=== PATIENT | female | born 1935 | race African-American/Black ===

== ENCOUNTER → 2019-12-22 06:36 | Outpatient (REF) | payer MEDICARE, MEDICAID, SELFPAY | LOC: OLS.ACW400 06:36 | PROVIDERS: Referring Provider Family Medicine; Visit Provider Family Medicine | DX: Z11.59 Encounter for screening for other viral diseases (principal) | CPT/HCPCS: 87635; U0003 ==

== ENCOUNTER → 2019-12-26 04:00 | Outpatient (REF) | payer MEDICARE, MEDICAID, SELFPAY ==
[2019-12-26 09:13] LABS: Hematocrit 32.6 % (37-47); Hemoglobin 10.2 g/dL (12.0-15.0); Mean Corp Hgb Conc 31.3 g/dL (32-36); Mean Corpuscular Hgb 26.3 pg (27.0-32.0); Platelet Count 122 K/mm3 (150-450); Red Blood Count 3.88 M/mm3 (4.2-5.4); White Blood Count 4.7 K/mm3 (4.4-11.0)
[2019-12-26 09:21] LABS: Scan Indicated on CBC? Y/N NO
[2019-12-26 09:37] LABS: ALB/GLOB Ratio 0.7 RATIO (0.9-2.4); AST(SGOT) 42 U/L (15-37); Alanine Aminotransfer ALT/SGPT 48 U/L (13-56); Albumin, Serum 2.8 g/dL (3.2-5.0); Alkaline Phosphatase 195 U/L (45-117); Anion Gap 5 (5-15); BUN 12 mg/dL (7-18); BUN/Creat Ratio 14.3 RATIO (10-20); Calcium,Total 9.1 mg/dL (8.5-10.1); Chloride 110 mmol/L (98-107); Creatinine, Serum 0.84 mg/dL (0.55-1.02); EST Glomerular Filtration Rate 68 mL/min (>60); Est Glom Filt Rate - Afr Amer 83 mL/min (>60); Globulin 3.8 g/dL (2.2-4.2); Glucose 85 mg/dL (74-106); Magnesium 1.9 mg/dL (1.6-2.6); Potassium 3.9 mmol/L (3.5-5.1); Protein, Total 6.6 g/dL (6.4-8.2); Sodium Level 141 mmol/L (136-145); Thyroid Stim Hormone (TSH) 1.57 uIU/mL (0.358-3.74)
[2019-12-26 09:54] LABS: Digoxin Level 0.89 ng/mL (0.80-2.00)
[2019-12-26 11:10] LABS: Vitamin D,25 Hydroxy 51.4 ng/mL
== END ==
LOC: OLS.ACW400 04:00
PROVIDERS: Referring Provider Family Medicine; Visit Provider Family Medicine
DX: I63.9 Cerebral infarction, unspecified (principal); I69.851 Hemiplegia and hemiparesis following other cerebrovascular disease affecting right dominant side; I69.320 Aphasia following cerebral infarction; R13.10 Dysphagia, unspecified; E55.9 Vitamin D deficiency, unspecified; Z79.899 Other long term (current) drug therapy
CPT/HCPCS: 36415; 80053; 80162; 82306; 82533; 83735; 84443; 85027

== ENCOUNTER → 2020-02-17 10:38 | Outpatient (REF) | payer MEDICARE, MEDICAID, SELFPAY | LOC: OLS.ACW400 10:38 | PROVIDERS: Visit Provider Family Medicine | DX: Z03.818 Encounter for observation for suspected exposure to other biological agents ruled out (principal) | CPT/HCPCS: 87635; U0003 ==

== ENCOUNTER → 2020-02-23 13:45 | Outpatient (REF) | payer MEDICARE, MEDICAID, SELFPAY | LOC: OLS.ACW400 13:45 | PROVIDERS: Referring Provider Family Medicine; Visit Provider Family Medicine | DX: Z03.818 Encounter for observation for suspected exposure to other biological agents ruled out (principal) | CPT/HCPCS: 87635; U0003 ==

== ENCOUNTER → 2020-03-05 08:00 | Outpatient (REF) | payer MEDICARE, MEDICAID, SELFPAY ==
[2020-03-05 10:04] LABS: ALB/GLOB Ratio 0.5 RATIO (0.9-2.4); AST(SGOT) 113 U/L (15-37); Alanine Aminotransfer ALT/SGPT 89 U/L (13-56); Albumin, Serum 2.7 g/dL (3.2-5.0); Alkaline Phosphatase 1099 U/L (45-117); Anion Gap 7 (5-15); BUN 12 mg/dL (7-18); BUN/Creat Ratio 12.8 RATIO (10-20); Calcium,Total 10.2 mg/dL (8.5-10.1); Chloride 108 mmol/L (98-107); Creatinine, Serum 0.94 mg/dL (0.55-1.02); EST Glomerular Filtration Rate 60 mL/min (>60); Est Glom Filt Rate - Afr Amer 73 mL/min (>60); Globulin 5.2 g/dL (2.2-4.2); Glucose 92 mg/dL (74-106); Potassium 3.8 mmol/L (3.5-5.1); Protein, Total 7.9 g/dL (6.4-8.2); Sodium Level 141 mmol/L (136-145)
[2020-03-05 10:16] LABS: Digoxin Level 0.74 ng/mL (0.80-2.00)
== END ==
LOC: OLS.ACW400 08:00
PROVIDERS: Visit Provider Family Medicine
DX: I63.9 Cerebral infarction, unspecified (principal); I69.851 Hemiplegia and hemiparesis following other cerebrovascular disease affecting right dominant side; I69.320 Aphasia following cerebral infarction; R13.10 Dysphagia, unspecified; Z79.899 Other long term (current) drug therapy
CPT/HCPCS: 36415; 80053; 80162

== ENCOUNTER → 2020-08-02 05:00 | Outpatient (REF) | payer MEDICARE, MEDICAID, SELFPAY ==
[2020-08-02 08:01] LABS: ALB/GLOB Ratio 0.8 RATIO (0.9-2.4); AST(SGOT) 25 U/L (15-37); Alanine Aminotransfer ALT/SGPT 24 U/L (13-56); Alkaline Phosphatase 396 U/L (45-117); Anion Gap 5 (5-15); BUN 14 mg/dL (7-18); BUN/Creat Ratio 19.4 RATIO (10-20); Calcium,Total 9.3 mg/dL (8.5-10.1); Chloride 113 mmol/L (98-107); Creatinine, Serum 0.72 mg/dL (0.55-1.02); EST Glomerular Filtration Rate 81 mL/min (>60); Est Glom Filt Rate - Afr Amer 98 mL/min (>60); Globulin 3.7 g/dL (2.2-4.2); Glucose 81 mg/dL (74-106); Potassium 3.9 mmol/L (3.5-5.1); Protein, Total 6.7 g/dL (6.4-8.2); Sodium Level 143 mmol/L (136-145)
[2020-08-02 08:12] LABS: Digoxin Level 0.09 ng/mL (0.80-2.00)
== END ==
LOC: OLS.ACW400 05:00
PROVIDERS: Visit Provider Family Medicine
DX: I63.9 Cerebral infarction, unspecified (principal); I69.851 Hemiplegia and hemiparesis following other cerebrovascular disease affecting right dominant side; I69.320 Aphasia following cerebral infarction; R13.10 Dysphagia, unspecified; Z79.899 Other long term (current) drug therapy
CPT/HCPCS: 36415; 80053; 80162

== ENCOUNTER → 2020-09-07 05:00 | Outpatient (REF) | payer MEDICARE, MEDICAID, SELFPAY ==
[2020-09-07 09:26] LABS: BNP,B-Type NATRIURETIC PEPTIDE 699.3 pg/mL (0-100)
[2020-09-07 09:29] LABS: Anion Gap 4 (5-15); BUN 16 mg/dL (7-18); BUN/Creat Ratio 20.4 RATIO (10-20); Calcium,Total 9.6 mg/dL (8.5-10.1); Chloride 111 mmol/L (98-107); Creatinine, Serum 0.78 mg/dL (0.55-1.02); EST Glomerular Filtration Rate 74 mL/min (>60); Est Glom Filt Rate - Afr Amer 90 mL/min (>60); Glucose 79 mg/dL (74-106); Potassium 4.1 mmol/L (3.5-5.1); Sodium Level 141 mmol/L (136-145)
== END ==
LOC: OLS.ACW400 05:00
PROVIDERS: Visit Provider Family Medicine
DX: I63.9 Cerebral infarction, unspecified (principal); I69.851 Hemiplegia and hemiparesis following other cerebrovascular disease affecting right dominant side; I69.391 Dysphagia following cerebral infarction; R13.12 Dysphagia, oropharyngeal phase; R60.9 Edema, unspecified
CPT/HCPCS: 36415; 80048; 83880

== ENCOUNTER → 2020-09-10 04:00 | Outpatient (REF) | payer MEDICARE, MEDICAID, SELFPAY ==
[2020-09-10 08:56] LABS: BNP,B-Type NATRIURETIC PEPTIDE 840.2 pg/mL (0-100)
[2020-09-10 09:10] LABS: Anion Gap 7 (5-15); BUN 16 mg/dL (7-18); BUN/Creat Ratio 18.6 RATIO (10-20); Calcium,Total 9.5 mg/dL (8.5-10.1); Chloride 109 mmol/L (98-107); Creatinine, Serum 0.86 mg/dL (0.55-1.02); EST Glomerular Filtration Rate 67 mL/min (>60); Est Glom Filt Rate - Afr Amer 81 mL/min (>60); Glucose 77 mg/dL (74-106); Sodium Level 142 mmol/L (136-145)
== END ==
LOC: OLS.ACW400 04:00
PROVIDERS: Visit Provider Family Medicine
DX: I63.9 Cerebral infarction, unspecified (principal); I69.851 Hemiplegia and hemiparesis following other cerebrovascular disease affecting right dominant side; I69.391 Dysphagia following cerebral infarction; R13.12 Dysphagia, oropharyngeal phase
CPT/HCPCS: 36415; 80048; 83880

== ENCOUNTER → 2020-09-28 05:00 | Outpatient (REF) | payer MEDICARE, MEDICAID, SELFPAY ==
[2020-09-28 08:08] LABS: Anion Gap 4 (5-15); BUN 17 mg/dL (7-18); BUN/Creat Ratio 18.3 RATIO (10-20); Calcium,Total 9.3 mg/dL (8.5-10.1); Chloride 111 mmol/L (98-107); Creatinine, Serum 0.93 mg/dL (0.55-1.02); EST Glomerular Filtration Rate 61 mL/min (>60); Est Glom Filt Rate - Afr Amer 73 mL/min (>60); Glucose 85 mg/dL (74-106); Potassium 3.8 mmol/L (3.5-5.1); Sodium Level 143 mmol/L (136-145)
== END ==
LOC: OLS.ACW400 05:00
PROVIDERS: Visit Provider Family Medicine
DX: I63.9 Cerebral infarction, unspecified (principal); I69.851 Hemiplegia and hemiparesis following other cerebrovascular disease affecting right dominant side; I69.391 Dysphagia following cerebral infarction; R13.12 Dysphagia, oropharyngeal phase
CPT/HCPCS: 36415; 80048

== ENCOUNTER → 2020-10-05 05:00 | Outpatient (REF) | payer MEDICARE, MEDICAID, SELFPAY ==
[2020-10-05 08:19] LABS: Anion Gap 7 (5-15); BUN 20 mg/dL (7-18); BUN/Creat Ratio 17.2 RATIO (10-20); Calcium,Total 9.6 mg/dL (8.5-10.1); Chloride 107 mmol/L (98-107); Creatinine, Serum 1.16 mg/dL (0.55-1.02); EST Glomerular Filtration Rate 47 mL/min (>60); Est Glom Filt Rate - Afr Amer 57 mL/min (>60); Glucose 91 mg/dL (74-106); Potassium 4.2 mmol/L (3.5-5.1); Sodium Level 141 mmol/L (136-145)
== END ==
LOC: OLS.ACW400 05:00
PROVIDERS: Referring Provider Family Medicine; Visit Provider Family Medicine
DX: I63.9 Cerebral infarction, unspecified (principal); I69.851 Hemiplegia and hemiparesis following other cerebrovascular disease affecting right dominant side; I69.391 Dysphagia following cerebral infarction; R13.12 Dysphagia, oropharyngeal phase
CPT/HCPCS: 36415; 80048

== ENCOUNTER → 2020-10-12 05:00 | Outpatient (REF) | payer MEDICARE, MEDICAID, SELFPAY ==
[2020-10-12 09:16] LABS: Anion Gap 4 (5-15); BUN 31 mg/dL (7-18); BUN/Creat Ratio 24.6 RATIO (10-20); Calcium,Total 9.9 mg/dL (8.5-10.1); Chloride 109 mmol/L (98-107); Creatinine, Serum 1.26 mg/dL (0.55-1.02); EST Glomerular Filtration Rate 43 mL/min (>60); Est Glom Filt Rate - Afr Amer 52 mL/min (>60); Glucose 93 mg/dL (74-106); Potassium 3.9 mmol/L (3.5-5.1); Sodium Level 143 mmol/L (136-145)
== END ==
LOC: OLS.ACW400 05:00
PROVIDERS: Visit Provider Family Medicine
DX: I63.9 Cerebral infarction, unspecified (principal); I69.851 Hemiplegia and hemiparesis following other cerebrovascular disease affecting right dominant side; I69.391 Dysphagia following cerebral infarction; R13.12 Dysphagia, oropharyngeal phase
CPT/HCPCS: 36415; 80048

== ENCOUNTER → 2020-10-19 05:00 | Outpatient (REF) | payer MEDICARE, MEDICAID, SELFPAY ==
[2020-10-19 07:55] LABS: Anion Gap 3 (5-15); BUN 25 mg/dL (7-18); BUN/Creat Ratio 25.6 RATIO (10-20); Calcium,Total 9.4 mg/dL (8.5-10.1); Chloride 110 mmol/L (98-107); Creatinine, Serum 0.98 mg/dL (0.55-1.02); EST Glomerular Filtration Rate 57 mL/min (>60); Est Glom Filt Rate - Afr Amer 69 mL/min (>60); Glucose 86 mg/dL (74-106); Potassium 4.3 mmol/L (3.5-5.1); Sodium Level 142 mmol/L (136-145)
== END ==
LOC: OLS.ACW400 05:00
PROVIDERS: Visit Provider Family Medicine
DX: I50.9 Heart failure, unspecified (principal); I63.9 Cerebral infarction, unspecified; I69.851 Hemiplegia and hemiparesis following other cerebrovascular disease affecting right dominant side; I69.391 Dysphagia following cerebral infarction; R13.12 Dysphagia, oropharyngeal phase
CPT/HCPCS: 36415; 80048

== ENCOUNTER → 2020-10-25 05:00 | Outpatient (REF) | payer MEDICARE, MEDICAID, SELFPAY ==
[2020-10-25 09:25] LABS: Anion Gap 2 (5-15); BUN 24 mg/dL (7-18); BUN/Creat Ratio 25.8 RATIO (10-20); Calcium,Total 9.2 mg/dL (8.5-10.1); Chloride 109 mmol/L (98-107); Creatinine, Serum 0.93 mg/dL (0.55-1.02); EST Glomerular Filtration Rate 61 mL/min (>60); Est Glom Filt Rate - Afr Amer 73 mL/min (>60); Glucose 76 mg/dL (74-106); Potassium 4.3 mmol/L (3.5-5.1); Sodium Level 139 mmol/L (136-145)
== END ==
LOC: OLS.ACW400 05:00
PROVIDERS: Referring Provider Family Medicine; Visit Provider Family Medicine
DX: I63.9 Cerebral infarction, unspecified (principal); I69.851 Hemiplegia and hemiparesis following other cerebrovascular disease affecting right dominant side; I69.391 Dysphagia following cerebral infarction; R13.12 Dysphagia, oropharyngeal phase
CPT/HCPCS: 36415; 80048

== ENCOUNTER → 2021-02-01 05:00 | Outpatient (REF) | payer MEDICARE, MEDICAID, SELFPAY ==
[2021-02-01 09:54] LABS: ALB/GLOB Ratio 0.7 RATIO (0.9-2.4); AST(SGOT) 26 U/L (15-37); Alanine Aminotransfer ALT/SGPT 31 U/L (13-56); Alkaline Phosphatase 158 U/L (45-117); Anion Gap 5 (5-15); BUN 17 mg/dL (7-18); BUN/Creat Ratio 20.1 RATIO (10-20); Calcium,Total 9.2 mg/dL (8.5-10.1); Chloride 110 mmol/L (98-107); Creatinine, Serum 0.85 mg/dL (0.55-1.02); EST Glomerular Filtration Rate 68 mL/min (>60); Est Glom Filt Rate - Afr Amer 82 mL/min (>60); Globulin 4.1 g/dL (2.2-4.2); Glucose 79 mg/dL (74-106); Potassium 4.1 mmol/L (3.5-5.1); Protein, Total 7.1 g/dL (6.4-8.2); Sodium Level 141 mmol/L (136-145)
== END ==
LOC: OLS.ACW100 05:00
PROVIDERS: Visit Provider Family Medicine
DX: I63.9 Cerebral infarction, unspecified (principal); I69.851 Hemiplegia and hemiparesis following other cerebrovascular disease affecting right dominant side; I69.391 Dysphagia following cerebral infarction; R13.12 Dysphagia, oropharyngeal phase
CPT/HCPCS: 80053

== ENCOUNTER → 2021-05-14 | Outpatient (REF) | payer MEDICARE, MEDICAID, SELFPAY ==
[2021-05-14 08:49] LABS: Hematocrit 34.4 % (37-47); Mean Corpuscular Hgb 30.8 pg (27.0-32.0); Mean Corpuscular Volume 96.4 fL (81-99); Mean Platelet Vol. 12.4 fl (6.2-12.0); Platelet Count 126 K/mm3 (150-450); RBC Distribution Width CV 14.6 % (11.6-14.6); RBC Distribution Width SD 51.9 fl (35.1-43.9); Red Blood Count 3.57 M/mm3 (4.2-5.4); White Blood Count 4.5 K/mm3 (4.4-11.0)
[2021-05-14 09:06] LABS: Uric Acid 6.7 mg/dL (2.6-6.0)
== END | disposition home or self-care (01) ==
LOC: OLS.ACW400 05:00
PROVIDERS: Visit Provider Family Medicine
DX: I63.9 Cerebral infarction, unspecified (principal); I69.851 Hemiplegia and hemiparesis following other cerebrovascular disease affecting right dominant side; I69.391 Dysphagia following cerebral infarction; R13.12 Dysphagia, oropharyngeal phase
CPT/HCPCS: 36415; 84550; 85027

== ENCOUNTER → 2021-08-02 | Outpatient (REF) | payer MEDICARE, MEDICAID, SELFPAY ==
[2021-08-02 07:55] LABS: ALB/GLOB Ratio 0.7 RATIO (0.9-2.4); AST(SGOT) 17 U/L (15-37); Alanine Aminotransfer ALT/SGPT 13 U/L (13-56); Albumin, Serum 3.2 g/dL (3.2-5.0); Alkaline Phosphatase 135 U/L (45-117); Anion Gap 3 (5-15); BUN 31 mg/dL (7-18); BUN/Creat Ratio 28.2 RATIO (10-20); Chloride 112 mmol/L (98-107); EST Glomerular Filtration Rate 50 mL/min (>60); Est Glom Filt Rate - Afr Amer 60 mL/min (>60); Globulin 4.9 g/dL (2.2-4.2); Glucose 111 mg/dL (74-106); Potassium 4.2 mmol/L (3.5-5.1); Protein, Total 8.1 g/dL (6.4-8.2); Sodium Level 141 mmol/L (136-145)
== END | disposition home or self-care (01) ==
LOC: OLS.ACW400 05:00
PROVIDERS: Visit Provider Family Medicine
DX: I63.9 Cerebral infarction, unspecified (principal); I69.851 Hemiplegia and hemiparesis following other cerebrovascular disease affecting right dominant side; I69.391 Dysphagia following cerebral infarction; R13.12 Dysphagia, oropharyngeal phase
CPT/HCPCS: 36415; 80053

== ENCOUNTER → 2021-08-15 | Outpatient (REF) | payer MEDICARE, MEDICAID, SELFPAY ==
[2021-08-15 12:31] LABS: INR Fingerstick 2.1; Prothrombin Time Fingerstick 24.2 SEC (11.7-14.9)
== END | disposition home or self-care (01) ==
LOC: OLS.ACW400 05:00
PROVIDERS: Visit Provider Family Medicine
DX: I63.9 Cerebral infarction, unspecified (principal); I69.851 Hemiplegia and hemiparesis following other cerebrovascular disease affecting right dominant side; I69.391 Dysphagia following cerebral infarction; R13.12 Dysphagia, oropharyngeal phase
CPT/HCPCS: 36416; 85610